=== PATIENT | female | born 1970 | race Caucasian/White ===

== ENCOUNTER 2017-03-27 15:21 | Emergency (ER) | payer BC ==
[2017-03-27] MEDS ORDERED: Aspirin 81 MG Tab.Chew PO ONE (15:42)
[2017-03-27] MEDS ORDERED: Sodium Chloride 0.9% 10 ML Syringe FLUSH PRN (15:43)
[2017-03-27] MEDS ORDERED: Pantoprazole 40 MG Vial IVPUSH ONE (15:43)
[2017-03-27] MEDS ORDERED: GI Cocktail Oral Solution 30 ML PO ONE (15:43)
--- NOTE | 2017-03-27 15:44 | EDM.PDOC ---
ED HPI GENERAL MEDICAL PROBLEM - General Chief Complaint: Chest Pain Stated Complaint: Chest Pain Time Seen by Provider: 03/27/17 15:26 Source of Information: Reports: Patient, RN, RN Notes Reviewed History Limitations: Reports: No Limitations - History of Present Illness INITIAL COMMENTS - FREE TEXT/NARRATIVE: Patient presented to the emergency room at [facility] with an acute onset of substernal chest pain. The patient states that the pain feels gripping and twisting. The patient states she also broke out into a sweat. The patient states that the pain got so bad it made her tearful. The patient denies any nausea vomiting or diarrhea. The patient admits that she has not eaten any food today. No previous cardiac history. No previous respiratory problems. The patient does not smoke. The patient only drinks alcohol on a social basis. The patient did not get lightheaded or dizzy. The patient does not feel short of breath. The pain does not radiate. Onset: Today, Sudden Onset Date: 03/27/17 Duration: Constant, Getting Worse Location: Reports: Chest Quality: Reports: Pressure, Stabbing Severity: Moderate Improves with: Reports: None Worsens with: Reports: None Context: Denies: Sick Contact, Trauma Associated Symptoms: Reports: No Other Symptoms Mid-Sternal Chest Pain Score (Numeric/FACES): 3 - Related Data Allergies Allergy/AdvReac Type Severity Reaction Status Date / Time erythromycin base Allergy Vomiting Verified 03/27/17 15:36 Home Meds: Home Meds Aspirin 81 mg PO DAILY 03/14/17 [History] Loratadine [Claritin] 10 mg PO DAILY 03/27/17 [History] Social & Family History - Tobacco Use Smoking Status *Q: Never Smoker ED ROS GENERAL - Review of Systems Review Of Systems: See Below Constitutional: Denies: Fever, Chills, Weakness Respiratory: Denies: Shortness of Breath, Cough Cardiovascular: Reports: Chest Pain. Denies: Lightheadedness, Palpitations GI/Abdominal: Denies: Abdominal Pain, Nausea, Vomiting Skin: Reports: No Symptoms Neurological: Reports: No Symptoms. Denies: Dizziness, Headache ED EXAM, GENERAL - Physical Exam Exam: See Below Exam Limited By: No Limitations General Appearance: Alert, No Apparent Distress Neck: Supple Respiratory/Chest: No Respiratory Distress, Lungs Clear, Normal Breath Sounds Cardiovascular: Normal Peripheral Pulses, Regular Rate, Rhythm Peripheral Pulses: 2+: Radial (L), Radial (R) GI/Abdominal: Normal Bowel Sounds, Soft, Non-Tender Extremities: Normal Inspection Neurological: Alert, Oriented Skin Exam: Warm, Dry, Intact, Normal Color, No Rash EKG INTERPRETATION EKG Date: 03/27/17 Time: 15:22 Rhythm: NSR Rate (Beats/Min): 76 [place]: Normal P-Wave: Present QRS: Normal ST-T: Normal QT: Normal NH/PQ Interval: 0.14 Comparison: NA - No Prior EKG EKG Interpretation Comments: EKG #1: 03/27/2017 15:22 -Sinus Rhythm -Nonspecific T-wave abnormality -Borderline ECG EKG #2: 03/27/2017 17:11 -Sinus Rhythm -Normal ECG Course - Vital Signs Last Recorded V/S: Last Vital Signs Temp 36.6 C 03/27/17 15:25 Pulse 80 03/27/17 17:19 Resp 16 03/27/17 17:19 BP 123/73 03/27/17 17:19 Pulse Ox 99 03/27/17 17:19 - Orders/Labs/Meds Orders: Active Orders 24 hr Category Date Time Status EKG 12 Lead [EKG Documentation Completion] [RC] STAT Care 03/27/17 15:27 Ordered EKG 12 Lead [EKG Documentation Completion] [RC] STAT Care 03/27/17 17:32 Ordered Chest 2V [CR] Stat Exams 03/27/17 15:26 Taken Sodium Chloride 0.9% [Saline Flush] Med 03/27/17 15:43 Active 10 ml FLUSH ASDIRECTED PRN Peripheral IV Insertion Adult [OM.PC] Routine Oth 03/27/17 15:43 Ordered Medication Orders Sodium Chloride (Saline Flush) 10 ml FLUSH ASDIRECTED PRN PRN Reason: Keep Vein Open Labs: Laboratory Tests 03/27/17 03/27/17 03/27/17 Range/Units 15:35 15:35 15:35 WBC 6.8 (4.0-10.0) x10^3/uL RBC 4.60 (4.00-5.50) x10^6/uL Hgb 13.7 (12.0-16.0) g/dL Hct 41.3 (33.0-47.0) % MCV 89.8 (78.0-93.0) fL MCH 29.8 (26.0-32.0) pg MCHC 33.2 (32.0-36.0) g/dL RDW Coeff of Giselle 12.8 (10.0-15.0) % Plt Count 194 (130-400) x10^3/uL Neut % (Auto) 57.6 (50.0-80.0) % Lymph % (Auto) 32.2 (25.0-50.0) % Burt % (Auto) 7.7 (2.0-11.0) % Eos % (Auto) 2.2 (0.0-4.0) % Baso % (Auto) 0.3 (0.2-1.2) % Sodium 141 (136-145) mmol/L Potassium 4.0 (3.5-5.1) mmol/L Chloride 102 (98-107) mmol/L Carbon Dioxide 27 (21-32) mmol/L BUN 12 (7-18) mg/dL Creatinine 0.8 (0.55-1.02) mg/dL Est Cr Clr Drug Dosing TNP Estimated GFR (MDRD) > 60 Glucose 92 (74-106) mg/dL Lactic Acid 0.9 (0.4-2.0) mmol/L Calcium 8.9 (8.5-10.1) mg/dL Corrected Calcium 9.14 (8.5-10.1) mg/dL Total Bilirubin 0.6 (0.2-1.0) mg/dL AST 70 H (15-37) U/L ALT 206 H (14-59) U/L Alkaline Phosphatase 60 (46-116) U/L Creatine Kinase 37 (26-192) U/L Creatine Kinase Index TNP CK-MB (CK-2) TNP Troponin I < 0.017 (<=0.056) ng/mL C-Reactive Protein < 0.2 (<=0.9) mg/dL Total Protein 7.2 (6.4-8.2) g/dL Albumin 3.7 (3.4-5.0) g/dL Globulin 3.5 Albumin/Globulin Ratio 1.06 Amylase 37 (25-115) U/L Lipase 62 L (73-393) U/L Meds: Medications Generic Name Dose Route Start Last Admin Trade Name Freq PRN Reason Stop Dose Admin Sodium Chloride 10 ml 03/27/17 15:43 Saline Flush FLUSH ASDIRECTED PRN Keep Vein Open Discontinued Medications Generic Name Dose Route Start Last Admin Trade Name Dorcas PRN Reason Stop Dose Admin Al Hydroxide/Mg Hydroxide 30 ml 03/27/17 15:43 03/27/17 16:00 Gi Cocktail PO 03/27/17 15:44 30 ml ONETIME ONE Administration Aspirin 324 mg 03/27/17 15:42 03/27/17 15:50 Aspirin PO 03/27/17 15:43 324 mg ONETIME ONE Administration Nitroglycerin 0.4 mg 03/27/17 16:35 03/27/17 17:14 Nitrostat SL 03/27/17 16:36 0.4 mg ONETIME ONE Administration Nitroglycerin 0.4 mg 03/27/17 17:32 Nitrostat SL 03/27/17 17:33 ONETIME ONE Pantoprazole Sodium 40 mg 03/27/17 15:43 03/27/17 16:10 Protonix Iv IVPUSH 03/27/17 15:44 40 mg ONETIME ONE Administration - Radiology Interpretation Free Text/Narrative:: CXR: Normal exam - see scanned report in EMR - Re-Assessments/Exams Free Text/Narrative Re-Assessment/Exam: 03/27/17 17:06 Blood work and EKG negative. The patient continues to feel the chest pain. The patient did receive a GI cocktail which she states gave her minimal relief of her chest pain. The patient was then given a sublingual nitroglycerin which did help her chest pain. The patient states that her pain has radiated over to the left chest area. We will repeat an EKG at this time. I will then fax those to [facility] in [place] for review. Departure - Departure Time of Disposition: 18:00 Disposition: Home, Self-Care 01 Reason for Transfer *Q: Other Condition: Good Clinical Impression: Atypical chest pain Instructions: Nonspecific Chest Pain, [id number] Referrals: Pamela Rider MD [Primary Care Provider] - Forms: ED Department Discharge Additional Instructions: 1. Stay well hydrated and rest 2. Return to [facility] at 6:30pm and 21:30pm for repeat blood draws 3. If your chest pain returns, please report to [facility] ER 4. Make a follow up appointment with Dr. Rider for next week. 5. Call with any questions or concerns 6. Also recommend having your liver enzymes rechecked at your next PCP appointment ED Communication - ED Communication Date/Time Date: 03/27/17 Time Called: 17:31 - Discussed Case With (1) Discussed Case With (1): Outpatient Provider Person/s Notified (1): Jb Kennedy - Conversation Summary Outpatient Provider Agreed to Follow-up on this Patient: Yes Patient Aware of Amendments fo Care Plan: Yes Summary Comment: Discussed case with Dr. Kennedy, Cardiology. Recommend serial enzymes as outpatient. Will possibly need OPT stress echo, etc. in the near future. No concerns with blood work or EKG's at this time. - Problem List Review Problem List Initiated/Reviewed/Updated: Yes - My Orders Last 24 Hours: My Active Orders 03/27/17 15:26 Chest 2V [CR] Stat 03/27/17 15:27 EKG 12 Lead [EKG Documentation Completion] [RC] STAT 03/27/17 15:43 Sodium Chloride 0.9% [Saline Flush] 10 ml FLUSH ASDIRECTED PRN Peripheral IV Insertion Adult [OM.PC] Routine 03/27/17 17:32 EKG 12 Lead [EKG Documentation Completion] [RC] STAT - Assessment/Plan Last 24 Hours: My Active Orders 03/27/17 15:26 Chest 2V [CR] Stat 03/27/17 15:27 EKG 12 Lead [EKG Documentation Completion] [RC] STAT 03/27/17 15:43 Sodium Chloride 0.9% [Saline Flush] 10 ml FLUSH ASDIRECTED PRN Peripheral IV Insertion Adult [OM.PC] Routine 03/27/17 17:32 EKG 12 Lead [EKG Documentation Completion] [RC] STAT Plan: Patient will be discharged home. The patient will return this evening for outpatient lab work to monitor her cardiac enzymes. The patient was offered admission to the observation unit which she did decline. Patient aware of the risks and benefits. I did discuss the case with , cardiology from [facility]. Cardiology is okay for the patient to do outpatient lab work. The patient is well aware if her chest pain returns she is to report directly to [facility] in [place].
[2017-03-27 16:20] LABS: CHLORIDE,CL 102 mmol/L (98-107); SODIUM,NA 141 mmol/L (136-145)
[2017-03-27] MEDS: Nitroglycerin 0.4 MG Tab.SL SL ONE ×2 (16:30→17:14)
[2017-03-27] MEDS ORDERED: Nitroglycerin 0.4 MG Tab.SL SL ONE (17:32)
== END 2017-03-27 18:25 | disposition home or self-care (01) ==
LOC: VM.ED 15:21
DX: R07.2 Precordial pain (principal); Z79.82 Long term (current) use of aspirin; Z79.899 Other long term (current) drug therapy; Z88.1 Allergy status to other antibiotic agents
CPT/HCPCS: 36415; 71046; 80053; 80061; 82150; 82550; 83605; 83690; 84484; 85025; 86140; 93005; 99285; A9270; C9113

== ENCOUNTER 2020-06-07 07:41 | Day surgery (SDC) | payer BC ==
[~2020-06-07 07:41] MED LIST: Sodium Chloride 0.9% 10 ML Syringe FLUSH PRN
[2020-06-07] MEDS: Lactated Ringers 1,000 ML IV SCH (07:59)
[2020-06-07] MEDS ORDERED: Ondansetron 4 MG/2 ML SDV ONE (08:29)
[2020-06-07] MEDS ORDERED: Propofol 200 MG/20 ML SDV ONE ×2 (08:29→08:51)
--- NOTE | 2020-06-07 15:03 | OR ---
DATE OF SURGERY: 06/07/2020. REFERRING PROVIDER: Sara Costello PA-C PRE-OPERATIVE DIAGNOSIS: Screening colonoscopy. This is the patient's first colonoscopy. There is a positive family history of colon cancer in maternal grandmother. Her mother and both sisters have also had polyps removed. POST-OPERATIVE DIAGNOSES: 1. Two total polyps removed. a. 3 mm polyp at 70 cm, removed using cold forceps. b. 6 mm polyp at 12 cm, removed using hot snare. 2. Normal-appearing distal ileum. 3. Somewhat tortuous colon. PROCEDURE: Colonoscopy with polypectomy x2 (1 using cold forceps and 1 using hot snare). SURGEON: Anuj Moreno M.D. ANESTHESIA: Monitored anesthesia care. BOWEL PREP: Good. Latesha is a 50-year-old female who was brought to the endoscopy suite after discussing risks and benefits of the procedure. Informed consent was obtained for conscious sedation and colonoscopy with or without biopsy and/or polypectomy. We also discussed possibility of missed lesions. Pre-procedure exam was unremarkable. IV, oxygen, and monitors were placed. The patient was placed in the left lateral decubitus position. Sedation was administered and a digital rectal exam was performed and unremarkable. Colonoscope was passed into the rectum and slowly advanced all the way to the cecum. The patient did have somewhat tortuous colon, did require some abdominal pressure. Cecum was viewed and photographed. Ileocecal valve was intubated and distal ileum was normal in appearance. The colonoscope was slowly withdrawn and the mucosa was closed observed in a direct circumferential manner. The ascending colon did reveal 3 mm polyp at 70 cm, removed using cold forceps. The transverse colon was unremarkable. The descending colon was unremarkable. The sigmoid colon was unremarkable except for a 6 mm polyp at 12 cm, removed using hot snare. Retroflexion was performed and rectal mucosa was otherwise unremarkable. Scope was removed. The patient tolerated the procedure well. The patient was monitored until that baseline status. Discharge instructions were reviewed and the patient was discharged in good condition. COMPLICATIONS: None. TOTAL TIME: 27 minutes. ESTIMATED BLOOD LOSS: Less than 1 mL. RECOMMENDATIONS/FOLLOW-UP: We will await results of path report to determine ideal followup interval. I would like to kindly thank Sara Costello for this referral. DMB: 06/07/2020 11:21:26 MODL: 06/07/2020 14:21:12 /[id number]
== END 2020-06-07 10:25 | disposition home or self-care (01) ==
LOC: VM.SDS 07:41
PROVIDERS: ATTEND Family Medicine
DX: Z12.11 Encounter for screening for malignant neoplasm of colon (principal); D12.2 Benign neoplasm of ascending colon; D12.5 Benign neoplasm of sigmoid colon; Z80.0 Family history of malignant neoplasm of digestive organs; J45.20 Mild intermittent asthma, uncomplicated; G43.009 Migraine without aura, not intractable, without status migrainosus; M54.42 Lumbago with sciatica, left side; M54.41 Lumbago with sciatica, right side; F39 Unspecified mood [affective] disorder; Z88.1 Allergy status to other antibiotic agents; Z91.09 Other allergy status, other than to drugs and biological substances; Z79.899 Other long term (current) drug therapy; Z86.16 Personal history of COVID-19; Z98.890 Other specified postprocedural states; Z86.73 Personal history of transient ischemic attack (TIA), and cerebral infarction without residual deficits
CPT/HCPCS: 00812; J2405; J2704; J7120

== ENCOUNTER 2023-12-31 12:47 | Day surgery (SDC) | payer BC ==
[2023-12-31] MEDS: Lactated Ringers 1,000 ML IV SCH (12:56)
[2023-12-31] MEDS: Ondansetron 4 MG/2 ML SDV IVPUSH PRN (13:14)
[2023-12-31] MEDS ORDERED: Propofol 200 MG/20 ML SDV ONE (13:48)
[2023-12-31] MEDS ORDERED: fentaNYL 100 MCG/2 ML SDV ONE (13:48)
== END 2023-12-31 15:32 | disposition home or self-care (01) ==
LOC: VM.SDS 12:47
PROVIDERS: ATTEND Family Medicine
DX: R13.10 Dysphagia, unspecified (principal); J45.20 Mild intermittent asthma, uncomplicated; F39 Unspecified mood [affective] disorder
CPT/HCPCS: 00731; J2405; J2704; J3010; J7120